=== PATIENT | male | born 1955 | race Caucasian/White ===

== ENCOUNTER → 2017-04-26 | Outpatient (CLI) | payer OTHER | END | disposition home or self-care (01) | LOC: PCVCIMAG 16:00 | DX: I25.10 Atherosclerotic heart disease of native coronary artery without angina pectoris (principal); E78.5 Hyperlipidemia, unspecified; I10 Essential (primary) hypertension; Z95.1 Presence of aortocoronary bypass graft | CPT/HCPCS: 93325; 93351 ==

== ENCOUNTER → 2018-01-03 | Outpatient (CLI) | payer OTHER ==
--- NOTE | 2018-01-03 16:48 | PCVCIMAG ---
APPROVED REPORT Study performed: 01/03/2018 10:09:07 EXAM: Comprehensive 2D, Doppler, and color-flow Echocardiogram Patient Location: Echo lab BSA: 2.17 HR: 70 bpmBP: 130/90 mmHg Rhythm: NSR Other Information Study Quality: Adequate Indications CAD cabg, bioprosthetic aortic valve replacment, ascending aortic aneurysm repair 2D Dimensions IVSd: 10.86 (7-11mm)LVOT Diam: 24.77 (18-24mm) LVDd: 48.02 mm PWd: 12.39 (7-11mm)Ascending Ao: 27.48 (22-36mm) LVDs: 36.79 (25-40mm) Left Atrium: 39.77 (27-40mm) Aortic Root: 27.83 mm LV Single Plane 4CH: 46.04 % LV Single Plane 2CH: 51.85 % Biplane EF: 50.1 % Volumes Left Atrial Volume (Systole) Single Plane 4CH: 40.69 mLSingle Plane 2CH: 47.17 mL LA ESV Index: 22.00 mL/m2 Aortic Valve AoV Peak Trung.: 2.32 m/s AO Peak Gr.: 21.51 mmHgLVOT Max P.26 mmHg AO Mean Gr.: 13.12 mmHgLVOT Mean P.79 mmHg AO V2 Mean: 1.75 m/sLVOT Max V: 0.90 m/s AO V2 VTI: 48.11 cm SARAH (VTI): 2.00 [id number] V1 VTI: 19.98 cm SARAH Vmax: 1.87 cm2 Mitral Valve E/A Ratio: 0.8 MV Decel. Time: 306.83 ms MV E Max Trung.: 0.58 m/s MV A Trung.: 0.72 m/s MV PHT: 88.98 ms IVRT: 93.43 ms Pulmonary Valve PV Peak Trung.: 0.89 m/sPV Peak Gr.: 3.20 mmHg Pulmonary Vein P Vein S: 0.25 m/sP Vein A: 0.27 m/s P Vein D: 0.45 m/sP Vein A Dur.: 141.9 msec P Vein S/D Ratio: 0.56 Tricuspid Valve TR Peak Trung.: 2.15 m/s TR Peak Gr.: 18.57 mmHg TV Vmax: 0.53 m/s Left Ventricle The left ventricle is normal size. There is normal LV segmental wall motion. Borderline concentric left ventricular hypertrophy. Left ventricular systolic function is normal. The left ventricular ejection fraction is within the normal range. LVEF is 50-55%. Grade I - abnormal relaxation pattern. Right Ventricle The right ventricle is normal size. The right ventricular systolic function is normal. Atria The left atrium size is normal. The right atrium size is normal. Aortic Valve Normally functioning bioprosthetic aortic valve replacement. No aortic regurgitation is present. There is no evidence of aortic valve stenosis. Calculated aortic valve area is 1.9 cm2 with maximum pressure gradient of 22 mmHg and mean pressure gradient of 13 mmHg. Mitral Valve The mitral valve is normal in structure. Mild mitral regurgitation. No evidence of mitral valve stenosis. Tricuspid Valve The tricuspid valve is normal in structure. Mild tricuspid regurgitation with PAP of 26 mmHg. Pulmonic Valve The pulmonary valve is normal in structure. There is no pulmonic valvular regurgitation. Great Vessels The aortic root is normal in size. History of ascending aortic aneurysm repair. IVC is normal in size and collapses >50% with inspiration. Pericardium There is no pericardial effusion. There is no pleural effusion. <Conclusion> The left ventricle is normal size. LVEF is 50-55%. Grade I - abnormal relaxation pattern. The right ventricle is normal size. The left atrium size is normal. Normally functioning bioprosthetic aortic valve replacement. No aortic regurgitation is present. There is no evidence of aortic valve stenosis. Calculated aortic valve area is 1.9 cm2 with maximum pressure gradient of 22 mmHg and mean pressure gradient of 13 mmHg. Mild mitral regurgitation. Mild tricuspid regurgitation with PAP of 26 mmHg. The aortic root is normal in size. There is no pericardial effusion.
== END | disposition home or self-care (01) ==
LOC: PCVCIMAG 09:41
PROVIDERS: ATTEND Internal Medicine Cardiovascular Disease
DX: I08.1 Rheumatic disorders of both mitral and tricuspid valves (principal); I25.810 Atherosclerosis of coronary artery bypass graft(s) without angina pectoris; I71.9 Aortic aneurysm of unspecified site, without rupture; I10 Essential (primary) hypertension; I71.2 Thoracic aortic aneurysm, without rupture; E78.2 Mixed hyperlipidemia; R00.2 Palpitations; Z95.2 Presence of prosthetic heart valve
CPT/HCPCS: 93306

== ENCOUNTER → 2018-08-15 | Outpatient (CLI) | payer OTHER | END | disposition home or self-care (01) | LOC: PCVCCLINIC 14:30 | PROVIDERS: ATTEND Internal Medicine Cardiovascular Disease | DX: I71.9 Aortic aneurysm of unspecified site, without rupture (principal); E78.2 Mixed hyperlipidemia; I25.10 Atherosclerotic heart disease of native coronary artery without angina pectoris; I10 Essential (primary) hypertension; Z95.2 Presence of prosthetic heart valve | CPT/HCPCS: 36415; 80061; 93005; G0463 ==

== ENCOUNTER → 2018-11-05 | Outpatient (CLI) | payer OTHER | END | disposition home or self-care (01) | LOC: PCVCCLINIC 10:00 | PROVIDERS: ATTEND Internal Medicine Cardiovascular Disease | DX: I10 Essential (primary) hypertension (principal); I25.10 Atherosclerotic heart disease of native coronary artery without angina pectoris; E78.2 Mixed hyperlipidemia; Z79.82 Long term (current) use of aspirin; Z87.891 Personal history of nicotine dependence | CPT/HCPCS: 36415; 80061 ==